=== PATIENT | female | born 1965 | race Caucasian/White ===

== ENCOUNTER 2017-03-05 04:04 | Emergency (ER) | payer OTHER ==
--- NOTE | 2017-03-05 04:10 | PDOC ---
History of Present Illness - General History Source: Patient Exam Limitations: No Limitations - History of Present Illness Initial Comments: 03/05/17 04:38 The patient is a 51-year-old female, with a significant past medical history of asthma, HTN, h pylori, diabetes, who presents to the ED with chest pain. Pt states that she experienced chest pain lasting an hour that radiates up to her ears. She states that she was not sure if she took her levemir today so she thinks she took two doses of the medication. The patient denies any fever, chills, nausea, vomiting, diarrhea, or abdominal pain. The patient denies any shortness of breath. Family Hx: coronary artery disease (mother), diabetes, and asthma. <Mayra Simeon - Last Filed: 03/05/17 04:38> <Arelis Paulino - Last Filed: 03/05/17 06:17> - General Stated Complaint: CHEST PAIN Time Seen by Provider: 03/05/17 04:10 Past History <Mayra Simeon - Last Filed: 03/05/17 04:38> - Past Medical History Asthma: Yes Diabetes: Yes GI Disorders: Yes (H PYLORI) HTN: Yes - Surgical History Appendectomy: Yes - Psycho/Social/Smoking Cessation Hx Anxiety: No Suicidal Ideation: No Smoking History: Never smoked Hx Alcohol Use: Yes (SOCIAL) Substance Use Type: None <Arelis Paulino - Last Filed: 03/05/17 06:17> - Past Medical History Allergies/Adverse Reactions: Allergies Allergy/AdvReac Type Severity Reaction Status Date / Time iodine Allergy Hives Verified 03/05/17 04:31 povidone-iodine Allergy Hives Verified 03/05/17 04:31 [From Betadine] shellfish derived Allergy Hives Verified 03/05/17 04:31 soap [From Betadine] Allergy Hives Verified 03/05/17 04:31 Home Medications: Ambulatory Orders Albuterol Sulfate Inhaler - [Ventolin HFA Inhaler -] 1 - 2 inh PO QID PRN Losartan Potassium 0 mg PO HS 12/01/14 Metformin HCl [Metformin HCl ER] 1,000 mg PO BID 12/01/14 Salmeterol/Fluticasone [Advair 100Mcg/50Mcg -] 1 inh IH BID 12/01/14 Review of Systems - Review of Systems Able to Perform ROS?: Yes Comments:: 03/05/17 04:38 GENERAL/CONSTITUTIONAL: No fever or chills. No weakness. HEAD, EYES, EARS, NOSE AND THROAT: No change in vision. No ear discharge. No sore throat. +ear pain CARDIOVASCULAR: No shortness of breath. +chest pain RESPIRATORY: No cough, wheezing, or hemoptysis. SKIN: No rash GASTROINTESTINAL: No nausea, vomiting, diarrhea or constipation. GENITOURINARY: No dysuria, frequency, or change in urination. MUSCULOSKELETAL: No joint or muscle swelling or pain. No neck or back pain. NEUROLOGIC: No headache, vertigo, loss of consciousness, or change in strength/ sensation. ENDOCRINE: No increased thirst. No abnormal weight change. HEMATOLOGIC/LYMPHATIC: No anemia, easy bleeding, or history of blood clots. ALLERGIC/IMMUNOLOGIC: No hives or skin allergy. <Mayra Simeon - Last Filed: 03/05/17 04:38> *Physical Exam - Vital Signs Last Vital Signs Temp Pulse Resp BP Pulse Ox 98.6 F 89 20 125/79 98 03/05/17 04:31 03/05/17 04:31 03/05/17 04:31 03/05/17 04:31 03/05/17 04:31 - Physical Exam Comments: 03/05/17 04:39 GENERAL: Awake, alert, and fully oriented, in no acute distress. Obese. +pt appears to be anxious HEAD: No signs of trauma ENT: Auricles normal inspection, hearing grossly normal, nares patent, oropharynx clear EYES: PERRLA, EOMI, sclera anicteric, conjunctiva clear without exudates. Moist mucosa. NECK: Normal ROM, supple, no lymphadenopathy, JVD, or masses LUNGS: Breath sounds equal, clear to auscultation bilaterally. No wheezes, and no crackles HEART: Regular rate and rhythm, normal S1 and S2, no murmurs, rubs or gallops ABDOMEN: Soft, nontender, normoactive bowel sounds. No guarding, no rebound. No masses EXTREMITIES: Normal range of motion, no pitting edema. No clubbing or cyanosis. No cords, erythema, or tenderness NEUROLOGICAL: Cranial nerves II through XII grossly intact. Normal speech, normal gait SKIN: Warm, Dry, normal turgor, no rashes or lesions noted <Mayra Simeon - Last Filed: 03/05/17 04:38> ED Treatment Course - LABORATORY CBC & Chemistry Diagram: 03/05/17 04:45 03/05/17 04:45 <Arelis Paulino - Last Filed: 03/05/17 06:17> Medical Decision Making - Medical Decision Making 03/05/17 06:13 Pt comes with chest pain x 1 hour that woke her from sleep. She has a burning sensation mid chest to throat. Pt had bariatric surg. Since that time, she gained weight and this is the first time she is having GERD. Pt's BP is 120s systolic; her blood sugar is 200s. She has no SOB, chest clear on exam. EKG NSRl cxr normal. Labs normal. Pt will be discharged home. She admits that she has anxiety and that this is likely atypical CP. <Arelis Paulino - Last Filed: 03/05/17 06:17> *DC/Admit/Observation/Transfer - Attestations Scribe Attestion: 03/05/17 04:40 Documentation prepared by Mayra Simeon, acting as medical lab tech instructor for Arelis Paulino MD. <Mayra Simeon - Last Filed: 03/05/17 04:38> - Discharge Dispostion Admit: No <Arelis Paulino - Last Filed: 03/05/17 06:17> Diagnosis at time of Disposition: History of gastroesophageal reflux (GERD), Atypical chest pain, Anxiety - Discharge Dispostion Disposition: HOME Condition at time of disposition: Stable - Referrals Referrals: Jamaal Penny MD [Primary Care Provider] - - Patient Instructions Printed Discharge Instructions: DI for Atypical Chest Pain, GERD Diet, DI for Gastroesophageal Reflux Disease (GERD)
[2017-03-05 04:36] VITALS: BMI 40.4
[2017-03-05] MEDS ORDERED: MAG HYDROX/AL HYDROX/SIMETH 30 ML UNIT-DOSE CUP PO ONE (04:36)
[2017-03-05] MEDS ORDERED: MAG HYDROX/AL HYDROX/SIMETH 30 ML UNIT-DOSE CUP ONE (04:39)
[2017-03-05 04:54] LABS: BASOPHIL 0.7 % (0-2.0); EOSINOPHIL 3.2 % (0-4.5); MCH 27.4 pg (25.7-33.7); MCHC 32.3 g/dl (32.0-36.0); MEAN PLT VOLUME 7.5 fl (7.5-11.1); NEUTROPHILS 58.7 % (42.8-82.8); PLATELET COUNT 322 K/MM3 (134-434); RDW 13.6 % (11.6-15.6); WHITE BLOOD COUNT 11.8 K/mm3 (4.0-10.0)
[2017-03-05 05:25] LABS: ALBUMIN 3.6 g/dl (3.4-5.0); ANION GAP 10 (8-16); BILIRUBIN,TOTAL 0.4 mg/dL (0.2-1.0); CALCIUM 9.2 mg/dL (8.5-10.1); CO2 31 mmol/L (21-32); CREATININE 0.9 mg/dL (0.55-1.02); GLUCOSE,RANDOM 204 mg/dL (74-106); SGOT/AST 14 U/L (15-37); SGPT/ALT 50 U/L (12-78); TOT PROT 6.7 g/dl (6.4-8.2)
[2017-03-05 05:27] LABS: ALK PHOS 88 U/L (45-117); TROPONIN I < 0.02 ng/ml (0.00-0.05)
[2017-03-05 06:05] VITALS: BP 130/88; PULSE 83; TEMP 97.9
--- NOTE | 2017-03-05 19:17 | EKG ---
Test Reason : Blood Pressure : / mmHG Vent. Rate : 077 BPM Atrial Rate : 077 BPM P-R Int : 152 ms QRS Dur : 090 ms QT Int : 382 ms P-R-T Axes : 047 044 019 degrees QTc Int : 432 ms NORMAL SINUS RHYTHM NORMAL ECG NO PREVIOUS ECGS AVAILABLE Confirmed by KALEB PERRY MD ([id number]) on 03/05/2017 7:16:41 PM Referred By: Confirmed By:KALEB PERYR MD
== END 2017-03-05 06:06 | disposition home or self-care (01) ==
LOC: JER 04:04
DX: R07.89 Other chest pain (principal); F41.9 Anxiety disorder, unspecified; K21.9 Gastro-esophageal reflux disease without esophagitis; I10 Essential (primary) hypertension; E11.9 Type 2 diabetes mellitus without complications; J45.909 Unspecified asthma, uncomplicated
CPT/HCPCS: 36415; 71020-TC; 80053; 82550; 84484; 85025; 93005; 93010; 99281-25

== ENCOUNTER 2018-10-09 17:03 | Observation (INO) | payer OTHER ==
--- NOTE | 2018-10-09 19:28 | PDOC ---
History of Present Illness <Zeferino Shannon - Last Filed: 10/09/18 22:06> - General History Source: Patient - History of Present Illness Initial Comments: 10/09/18 19:34 52 year with history of meningioma s/p radiation on 03/2018by Dr. Sosa. c/o right eye blurriness, " quadruple vision" and dizziness x 2 weeks. denies headache, vision loss, fever/ chills, neck pain. patient reports that symptoms are intermittent in nature. denies NVD, headache, abdominal pain, chest pain. PCP: Dr. mondragon. <Nathalie Fisher - Last Filed: 10/09/18 23:09> - General Chief Complaint: Difficulty seeing Stated Complaint: DIFFICULTY SEEING Time Seen by Provider: 10/09/18 19:24 Past History <Zeferino Shannon - Last Filed: 10/09/18 22:06> - Past Medical History Asthma: Yes COPD: No Diabetes: Yes GI Disorders: Yes (H PYLORI) HTN: Yes Hypercholesterolemia: Yes - Surgical History Appendectomy: Yes GI Surgery: No - Immunization History Immunization Up to Date: Yes - Suicide/Smoking/Psychosocial Hx Smoking History: Never smoked Have you smoked in the past 12 months: No Information on smoking cessation initiated: No Hx Alcohol Use: No Drug/Substance Use Hx: No Substance Use Type: None <Nathalie Fisher - Last Filed: 10/09/18 23:09> - Past Medical History Allergies/Adverse Reactions: Allergies Allergy/AdvReac Type Severity Reaction Status Date / Time iodine Allergy Hives Verified 01/08/18 14:46 povidone-iodine Allergy Hives Verified 01/08/18 14:46 [From Betadine] shellfish derived Allergy Hives Verified 01/08/18 14:46 soap [From Betadine] Allergy Hives Verified 01/08/18 14:46 Home Medications: Ambulatory Orders Losartan Potassium 50 mg PO HS 12/01/14 Amlodipine Besylate 10 mg PO HS 01/08/18 Albuterol Sulfate Inhaler - [Ventolin Hfa Inhaler -] 1 - 2 inh PO Q4H PRN Farxiga 10 mg PO DAILY 01/09/18 Hctz - 25 mg PO HS 01/09/18 Lasix 20 mg PO Q2D 01/09/18 Levemir Vial 52 unit SQ HS 01/09/18 metFORMIN HCL [Glucophage -] 1,000 mg PO BIDAC 01/09/18 Acetaminophen [Tylenol .Regular Strength -] 650 mg PO Q6H PRN tablet 01/12/18 Albuterol 0.083% Nebulizer Lora [Ventolin 0.083% Nebulizer Soln -] 1 amp NEB Q6H PRN amp 01/12/18 Furosemide [Lasix -] 20 mg PO Q2D@1000 tablet 01/12/18 Hydrochlorothiazide [Hctz -] 25 mg PO HS tablet 01/12/18 Insulin (Levemir) [Levemir Vial] 52 units SQ HS ml 01/12/18 Losartan Potassium [Cozaar -] 50 mg PO HS tablet 01/12/18 Review of Systems - Review of Systems Able to Perform ROS?: Yes Is the patient limited Irish proficient: No Constitutional: No: Symptoms Reported, See HPI, Chills, Diaphoresis, Fever, Loss of Appetite, Malaise, Night Sweats, Weakness, Weight Stable, Unintentional Wgt. Loss, Unexplained wgt Loss, Other HEENTM: Yes: Blurred Vision (right eye) Neurological: Yes: Dizziness, Other (right side facial numbness). No: Symptoms reported, See HPI, Headache, Numbness, Paresthesia, Pre-Existing Deficit, Seizure, Tingling, Tremors, Weakness, Unsteady Gait, Ataxia <Nathalie Fisher S. - Last Filed: 10/09/18 23:09> *Physical Exam - Vital Signs Last Vital Signs Temp Pulse Resp BP Pulse Ox 97.9 F 84 16 168/89 97 10/09/18 17:20 10/09/18 17:20 10/09/18 17:20 10/09/18 17:20 10/09/18 17:20 <Zeferino Shannon - Last Filed: 10/09/18 22:06> - Vital Signs Last Vital Signs Temp Pulse Resp BP Pulse Ox 97.9 F 84 16 168/89 97 10/09/18 17:20 10/09/18 17:20 10/09/18 17:20 10/09/18 17:20 10/09/18 17:20 - Physical Exam General Appearance: Yes: Appropriately Dressed HEENT: positive: Other (PERRLA, no nystagmus, EOM intact. patient reports dizziness with EOM) Respiratory/Chest: positive: Lungs Clear, Normal Breath Sounds Cardiovascular: positive: Regular Rhythm, Regular Rate Gastrointestinal/Abdominal: positive: Normal Bowel Sounds, Soft. negative: Tender Integumentary: positive: Normal Color, Dry, Warm Neurologic: positive: Fully Oriented, Alert, Normal Mood/Affect <Nathalie Fisher - Last Filed: 10/09/18 23:09> Moderate Sedation - Procedure Monitoring Vital Signs: Procedure Monitoring Vital Signs Temperature 97.9 F 10/09/18 17:20 Pulse Rate 84 10/09/18 17:20 Respiratory Rate 16 10/09/18 17:20 Blood Pressure 168/89 10/09/18 17:20 O2 Sat by Pulse Oximetry (%) 97 10/09/18 17:20 <Zeferino Shannon - Last Filed: 10/09/18 22:06> - Procedure Monitoring Vital Signs: Procedure Monitoring Vital Signs Temperature 97.9 F 10/09/18 17:20 Pulse Rate 84 10/09/18 17:20 Respiratory Rate 16 10/09/18 17:20 Blood Pressure 168/89 10/09/18 17:20 O2 Sat by Pulse Oximetry (%) 97 10/09/18 17:20 <Nathalie Fisher - Last Filed: 10/09/18 23:09> ED Treatment Course - LABORATORY CBC & Chemistry Diagram: 10/09/18 20:31 10/09/18 20:31 - ADDITIONAL ORDERS Additional order review: Laboratory Results 10/09/18 10/09/18 20:31 20:31 PT with INR 10.30 INR 0.87 Urine Color Straw Urine Appearance Clear Urine pH 6.0 Ur Specific [place] 1.035 Urine Protein Negative Urine Glucose (UA) 3+ H Urine Ketones Negative Urine Blood Negative Urine Nitrite Negative Urine Bilirubin Negative Urine Urobilinogen Negative Ur Leukocyte Esterase Negative 10/09/18 20:31 RBC 4.70 MCV 84.6 MCHC 34.4 RDW 14.0 MPV 7.9 Neutrophils % 55.7 Lymphocytes % 32.8 D Monocytes % 5.5 Eosinophils % 5.4 H Basophils % 0.6 <Zeferino Shannon - Last Filed: 10/09/18 22:06> - LABORATORY CBC & Chemistry Diagram: 10/09/18 20:31 10/09/18 20:31 <Nathalie Fisher - Last Filed: 10/09/18 23:09> Medical Decision Making - Medical Decision Making 10/09/18 8:30pm Call placed to Dr. Phillip Sosa, patient's neurosurgeon, awaiting call back. 9:30pm Second call placed to Dr. Sosa, awaiting call back. 10pm Call returned from Dr. Sosa, case was discussed. Call placed to Dr. Jamaal Mondragon's answering service, case discussed with covering physician Dr. Tabares. <Zeferino Shannon - Last Filed: 10/09/18 22:06> - Medical Decision Making 10/09/18 22:[address] sosa. recommends obs stay for MRI. patient signed out to Dr. Humphries covering for Dr. Mondragon, 10/09/18 23:04 Blood glucose 301. patient reports that she missed her evening dose of levemir 52 units, losartan and metformin. denies NVD. will evening scheduled dose. <Nathalie Fisher - Last Filed: 10/09/18 23:09> *DC/Admit/Observation/Transfer - Attestations Scribe Attestion: 10/09/18 22:09 Documentation prepared by Zeferino Shannon, acting as medical interpreter for Carl Loving MD. <Zeferino Shannon - Last Filed: 10/09/18 22:06> - Discharge Dispostion Decision to Admit order: Yes <Nathalie Fisher - Last Filed: 10/09/18 23:09> Diagnosis at time of Disposition: Changes in vision, Dizziness, Meningioma - Discharge Dispostion Condition at time of disposition: Stable - Referrals Referrals: Jamaal Mondragon MD [Primary Care Provider] - - Patient Instructions - Post Discharge Activity
[2018-10-09 20:46] LABS: BASO % 0.6 % (0-2.0); EOS % 5.4 % (0-4.5); HEMATOCRIT 39.7 % (32.4-45.2); HEMOGLOBIN 13.7 GM/dL (10.7-15.3); LYMPH % 32.8 % (8-40); MCH 29.1 pg (25.7-33.7); MCHC 34.4 g/dl (32.0-36.0); MEAN CELL VOLUME 84.6 fl (80-96); MEAN PLT VOLUME 7.9 fl (7.5-11.1); MONO % 5.5 % (3.8-10.2); NEUT % 55.7 % (42.8-82.8); PLATELET COUNT 328 K/MM3 (134-434)
[2018-10-09 20:47] LABS: URINE APPEARANCE CLEAR; URINE BILIRUBIN NEGATIVE (<2.0 mg/dL); URINE COLOR STRAW; URINE GLUCOSE (UA) 3+ (NEGATIVE); URINE KETONE NEGATIVE (NEGATIVE); URINE LEUK ESTERASE NEGATIVE (NEGATIVE); URINE NITRITE NEGATIVE (NEGATIVE); URINE PROTEIN NEGATIVE (NEGATIVE); URINE UROBILINOGEN NEGATIVE mg/dL (0.2-1.0)
[2018-10-09 21:14] LABS: INR 0.87 (0.83-1.09); PROTHROMBIN TIME (PATIENT) 10.3 SEC (9.7-13.0)
[2018-10-09] MEDS ORDERED: DEXAMETHASONE SOD PHOSPHATE 20 MG/5 ML VIAL IVPB ONE (22:22)
[2018-10-09 22:46] LABS: ALBUMIN 3.7 g/dl (3.4-5.0); ALK PHOS 100 U/L (45-117); ANION GAP 7 MMOL/L (8-16); BILIRUBIN,TOTAL 0.3 mg/dL (0.2-1); BLOOD UREA NITROGEN 14 mg/dL (7-18); CALCIUM 8.7 mg/dL (8.5-10.1); CHLORIDE 104 mmol/L (98-107); CO2 30 mmol/L (21-32); CREATININE 0.8 mg/dL (0.55-1.3); SGOT/AST 42 U/L (15-37); SGPT/ALT 71 U/L (13-61); SODIUM 141 mmol/L (136-145); TOT PROT 7.2 g/dl (6.4-8.2)
[2018-10-09 22:49] LABS: GLUCOSE,RANDOM 307 mg/dL (74-106)
[2018-10-09] MEDS ORDERED: metFORMIN HCL 500 MG TABLET (FP) PO ONE (23:02)
[2018-10-09] MEDS ORDERED: LOSARTAN 50MG/HCTZ 12.5MG 1 TAB (FP) PO ONE (23:03)
[2018-10-10] MEDS ORDERED: DEXAMETHASONE SOD PHOSPHATE 10 MG/1 ML VIAL ONE (00:05)
[2018-10-10] MEDS ORDERED: metFORMIN HCL 500 MG TABLET (FP) ONE (00:05)
[2018-10-10] MEDS ORDERED: INSULIN (LEVEMIR) 100 UNITS/ML UNITS SQ ONE (00:06)
[2018-10-10 00:51] LABS: VENOUS PC02 35.7 mmHg (38-52); VENOUS PH 7.47 (7.32-7.42); VENOUS PO2 54.1 mmHg (28-48)
[2018-10-10 03:30] VITALS: BMI 44.2
[2018-10-10] MEDS: metFORMIN HCL 500 MG TABLET (FP) PO SCH ×2 (06:50→17:05)
--- NOTE | 2018-10-10 08:40 | PN ---
Progress Note (short form) - Note Progress Note: NEUROSURGERY H/o R cavernous sinus meningioma s/p GSR 6 months ago c/o right eye blurriness and dizziness x 2 weeks. States she sees quadruple vertical lines transiently. Difficulty opening eyes in morning. Some R cheek area numbness. Pt did have prior R facial paresthesia, pain, and OD diplopia which improved after initial GSR treatment. No recent headache, vision loss, fever/ chills, neck pain. Symptoms are intermittent in nature. denies N/V, weakness, numbness of extremity. Overall sensation slightly better this AM. PMH- DM, obesity, Htn Meds- insulin, losartan, glucophage, norvasc All- iodine/betadine So Hx: non-smoker, social Etoh, outreach and education social worker, lives at home ROS- negative for constitutional, head and neck, CV, pulm, GI, , Stylist Assistant, derm, psych, neuro, onc problems otherwise PE: AF, VSS HEENT- NC/AT; Neck- supple; Cor- RR; Lungs- CTA B; Abd- obese, benign; Ext- no sign of DVT CN- II-X intact (? minimal R lid lag if any); Motor- 5/5 without drift; Sensation- intact LT; DTR- 1+; Gait- stable Labs reviewed; WBC 11, Hgb 13.7; glucose [address]- Negative for acute stroke, bleed, fx; mild R cav sinus fullness R cavernous menigioma without obvious sign of growth on CT Repeat brain MRI without/with abdirahman Start trileptal for R eye and face paresthesia Hold further steroid given hyperglycemia DM control per medical team Plan d/w pt Care d/w ED team yesterday evening Further recommendations after MRI
[2018-10-10] MEDS: LOSARTAN POTASSIUM 50 MG TABLET (FP) PO SCH (09:51)
[2018-10-10] MEDS: amLODIPine BESYLATE 10 MG TABLET (FP) PO SCH (09:51)
[2018-10-10] MEDS ORDERED: OXcarbazepine 300 MG/5 ML 250 ML BULK BOTTLE PO SCH (10:00)
--- NOTE | 2018-10-10 10:00 | EKG ---
Test Reason : Blood Pressure : / mmHG Vent. Rate : 072 BPM Atrial Rate : 072 BPM P-R Int : 150 ms QRS Dur : 078 ms QT Int : 388 ms P-R-T Axes : 067 062 053 degrees QTc Int : 424 ms NORMAL SINUS RHYTHM NORMAL ECG WHEN COMPARED WITH ECG OF 08-JAN-2018 14:52, NO SIGNIFICANT CHANGE WAS FOUND Confirmed by Sin Zarate MD ([id number]) on 10/10/2018 10:00:42 AM Referred By: Confirmed By:Sin Zarate MD
[2018-10-10] MEDS ORDERED: ALBUTEROL SO4 8 GM HFA INHALER IH PRN (10:01)
--- NOTE | 2018-10-10 10:08 | PN ---
Progress Note, Physician Chief Complaint: pt sitting in the chair no new neurological symptoms Blurry vision on And OFF neurology note appreciated - Current Medication List Current Medications: Active Medications Albuterol Sulfate (Ventolin Hfa Inhaler -) 2 puff IH Q4H PRN PRN Reason: SHORT OF BREATH/WHEEZING Amlodipine Besylate (Norvasc -) 10 mg PO DAILY [facility] Last Admin: 10/10/18 09:51 Dose: 10 mg Insulin Detemir (Levemir Vial) 52 units SQ HS [facility] Losartan Potassium (Cozaar -) 50 mg PO DAILY [facility] Last Admin: 10/10/18 09:51 Dose: 50 mg Metformin HCl (Glucophage -) 1,000 mg PO BID@0700,1630 [facility] Last Admin: 10/10/18 06:50 Dose: 1,000 mg Oxcarbazepine (Trileptal) 150 mg PO BID [facility] - Objective Vital Signs: Vital Signs Temperature 98.2 F 10/10/18 06:00 Pulse Rate 88 10/10/18 06:00 Respiratory Rate 20 10/10/18 06:00 Blood Pressure 146/90 10/10/18 06:00 O2 Sat by Pulse Oximetry (%) 97 10/10/18 01:36 Constitutional: Yes: No Distress Eyes: Yes: Conjunctiva Clear, PERRL HENT: Yes: Atraumatic, Normocephalic Neck: Yes: Supple, Trachea Midline Cardiovascular: Yes: Regular Rate and Rhythm Respiratory: Yes: Regular, CTA Bilaterally Gastrointestinal: Yes: Normal Bowel Sounds, Soft Musculoskeletal: Yes: WNL Extremities: Yes: WNL Edema: No Peripheral Pulses WNL: Yes Neurological: Yes: WNL, Alert, Oriented, Cran Nerves II-XII Intact, Numbness ( rt side of face stable) ...Motor Strength: WNL Psychiatric: Yes: Alert Labs: CBC, BMP 10/09/18 20:31 10/09/18 20:31 INR, PTT INR 0.87 (0.83-1.09) 10/09/18 20:31 - ....Imaging Cat Scan: Report Reviewed MRI: Pending Assessment/Plan Blurred vision rt eye Numbness rt d side of face,stable S/p treatment for benign brain Tumor DM HTN plan MRI of brain Continue home meds monitor Blood sugar F/u neurosurgery rec Neurology consult
[2018-10-10] MEDS: OXcarbazepine 150 MG TABLET (UD) PO SCH ×2 (10:31→23:14)
--- NOTE | 2018-10-10 10:32 | HP ---
DATE OF ADMISSION: 10/09/2018 HISTORY: The patient is a 52-year-old female with a history of right cavernous sinus meningioma status post gamma radiation 6 months ago who came to the emergency room with the complaints of right eye blurriness and dizziness since 2 weeks. The patient states she sees quadruple vertical lines transient, difficulty in opening the eyes in the morning, and complains of some right cheek area numbness. The patient did have a prior right facial paresthesia pain and diplopia, which improved after initial gamma treatment. No recent headache. Patient ____denies_ fever, chills, neck pain, and all current symptoms are intermittent. No weakness, no numbness in the extremities , no swallowing problem, no speech problem, no history of any choking. Today morning the patient feels slightly better. PAST MEDICAL HISTORY: History of diabetes, hypertension, Helicobacter pylori, hypercholesterolemia. PERSONAL HISTORY: Nonsmoker. Social alcohol use. SOCIAL HISTORY: gas plant worker. Lives with the family. ALLERGIES: Allergy to POVIDONE-IODINE, SHELLFISH, STEROIDS, and SOAP. MEDICATIONS: Reviewed. The patient is on losartan 50 mg daily, amlodipine 10 mg daily, Ventolin HFA, Farxiga, hydrochlorothiazide, Levemir 52 units subcutaneous daily, metformin 1000 mg p.o. b.i.d., Tylenol 650 mg q.6 hourly. PHYSICAL EXAMINATION: Vital Signs: Temperature 97.9, pulse rate 84, respirations 16, blood pressure 168/89, temperature 97.1. Neck: Neck supple. No JVD. Lungs: Clear. Equally bilateral air entry. Cardiovascular: First and second sound normal. Abdomen: Soft and no tenderness. No distention. Bowel sounds present. Extremities: No pedal edema. Neurologic: Cranial nerves 2-12 intact. No impaired motor or sensory deficit. Reflexes normal. Gait normal. LABORATORIES: CBC normal. CMP: Sugar 307, sodium 141, potassium 5, chloride 104, bicarbonate 30, BUN 14, creatinine 0.8. ABG: PH 7.47, PCO2 of 35.7, PO2 of 54.1, bicarbonate 25.4. Troponin negative. CK 89, AST 43, ALT 71, alkaline phosphatase 100, calcium 8.1. Acetone urine negative. PT 10.3, INR 0.87, urine glucose 3+ . CT head without contrast and CT orbits done in the emergency room: No evidence of acute intracranial pathology. The patient was given 10-mg IV Decadron in the emergency room. The case was discussed with the neurosurgeon. Recommended to keep the patient for observation and recommend MRI. Patient kept for observation on the floor. ADMITTING DIAGNOSIS: 1. Blurriness of the right eye. 2. Mild numbness on the right side of the face. 3. Diabetes. 4. Hypertension. 5 s/p treatment for meningioma of brain PLAN: Neurosurgery follow up. MRI of the brain. Continue the home medication. Monitor the neurological signs. Patient is stable on the floor. BARAK ALFREDO M.D. [id number] MTDIrina
[2018-10-10] MEDS ORDERED: DEXAMETHASONE SOD PHOSPHATE 4 MG/1 ML VIAL IVPUSH ONE (12:00)
[2018-10-10] MEDS ORDERED: INSULIN (LEVEMIR) 100 UNITS/ML UNITS SQ SCH (22:00)
[2018-10-10] MEDS ORDERED: PT OWN MED DRAWER 7, Y5N ONE (22:17)
[2018-10-11] MEDS: metFORMIN HCL 500 MG TABLET (FP) PO SCH (06:09)
--- NOTE | 2018-10-11 09:26 | PN ---
Progress Note, Physician Chief Complaint: pt sitting in the chair no new neurological symptoms Blurry vision on And OFF neurology note appreciated MRI report pending Neurology consult appreciated - Current Medication List Current Medications: Active Medications Albuterol Sulfate (Ventolin Hfa Inhaler -) 2 puff IH Q4H PRN PRN Reason: SHORT OF BREATH/WHEEZING Last Admin: 10/11/18 00:17 Dose: 2 puff Amlodipine Besylate (Norvasc -) 10 mg PO DAILY [facility] Last Admin: 10/10/18 09:51 Dose: 10 mg Insulin Detemir (Levemir Vial) 52 units SQ HS [facility] Last Admin: 10/10/18 23:14 Dose: 52 units Losartan Potassium (Cozaar -) 50 mg PO DAILY [facility] Last Admin: 10/10/18 09:51 Dose: 50 mg Metformin HCl (Glucophage -) 1,000 mg PO BID@0700,1630 [facility] Last Admin: 10/11/18 06:09 Dose: 1,000 mg Oxcarbazepine (Trileptal -) 150 mg PO BID [facility] Last Admin: 10/10/18 23:14 Dose: 150 mg - Objective Vital Signs: Vital Signs Temperature 97.7 F 10/11/18 05:48 Pulse Rate 65 10/11/18 05:48 Respiratory Rate 18 10/11/18 05:48 Blood Pressure 117/68 10/11/18 05:48 O2 Sat by Pulse Oximetry (%) 96 10/11/18 06:00 Constitutional: Yes: No Distress Eyes: Yes: Conjunctiva Clear HENT: Yes: Atraumatic Neck: Yes: Supple, Trachea Midline Cardiovascular: Yes: Regular Rate and Rhythm Respiratory: Yes: Regular, CTA Bilaterally Gastrointestinal: Yes: Normal Bowel Sounds Breast(s): Yes: WNL Musculoskeletal: Yes: WNL Extremities: Yes: WNL Edema: No Peripheral Pulses WNL: Yes Neurological: Yes: WNL, Alert ...Motor Strength: WNL Psychiatric: Yes: WNL, Alert Labs: CBC, BMP 10/09/18 20:31 10/09/18 20:31 INR, PTT INR 0.87 (0.83-1.09) 10/09/18 20:31 Assessment/Plan Blurred vision rt eye Numbness rt d side of face,stable S/p treatment for meningioma DM HTN plan Will f/u MRI of brain report Continue home meds monitor Blood sugar F/u neurosurgery rec regarding d/c after reviewing MRI report
[2018-10-11] MEDS ORDERED: PT OWN MED DRAWER 7, Y5N ONE (09:31)
[2018-10-11] MEDS: amLODIPine BESYLATE 10 MG TABLET (FP) PO SCH (09:33)
[2018-10-11] MEDS: LOSARTAN POTASSIUM 50 MG TABLET (FP) PO SCH (09:33)
[2018-10-11] MEDS: OXcarbazepine 150 MG TABLET (UD) PO SCH (09:33)
--- NOTE | 2018-10-11 09:41 | CONSULT ---
Consult - text type - Consultation Consultation Note: Neurology History of Present Illness 52 year with history of meningioma s/p radiation on 03/[address] Mccarthy. c/o right eye blurriness, " quadruple vision" and dizziness x 2 weeks. denies headache, vision loss, fever/ chills, neck pain. patient reports that symptoms are intermittent in nature. denies NVD, headache, abdominal pain, chest pain. MRI brain repeated and stable compared to prior, reviewed and discussed with patient in detail. Discussed case with primary in detail yesterday. Aside from vision, no significant symptoms. Past History - Past Medical History Asthma: Yes COPD: No Diabetes: Yes GI Disorders: Yes (H PYLORI) HTN: Yes Hypercholesterolemia: Yes - Surgical History Appendectomy: Yes GI Surgery: No - Immunization History Immunization Up to Date: Yes - Suicide/Smoking/Psychosocial Hx Smoking History: Never smoked Have you smoked in the past 12 months: No Information on smoking cessation initiated: No Hx Alcohol Use: No Drug/Substance Use Hx: No Substance Use Type: None - Past Medical History Allergies/Adverse Reactions: Allergies Allergy/AdvReac Type Severity Reaction Status Date / Time iodine Allergy Hives Verified 01/08/18 14:46 povidone-iodine Allergy Hives Verified 01/08/18 14:46 [From Betadine] shellfish derived Allergy Hives Verified 01/08/18 14:46 soap [From Betadine] Allergy Hives Verified 01/08/18 14:46 Home Medications: Ambulatory Orders Losartan Potassium 50 mg PO HS 12/01/14 Amlodipine Besylate 10 mg PO HS 01/08/18 Albuterol Sulfate Inhaler - [Ventolin Hfa Inhaler -] 1 - 2 inh PO Q4H PRN Farxiga 10 mg PO DAILY 01/09/18 Hctz - 25 mg PO HS 01/09/18 Lasix 20 mg PO Q2D 01/09/18 Levemir Vial 52 unit SQ HS 01/09/18 metFORMIN HCL [Glucophage -] 1,000 mg PO BIDAC 01/09/18 Acetaminophen [Tylenol .Regular Strength -] 650 mg PO Q6H PRN tablet 01/12/18 Albuterol 0.083% Nebulizer Lora [Ventolin 0.083% Nebulizer Soln -] 1 amp NEB Q6H PRN amp 01/12/18 Furosemide [Lasix -] 20 mg PO Q2D@1000 tablet 01/12/18 Hydrochlorothiazide [Hctz -] 25 mg PO HS tablet 01/12/18 Insulin (Levemir) [Levemir Vial] 52 units SQ HS ml 01/12/18 Losartan Potassium [Cozaar -] 50 mg PO HS tablet 01/12/18 Review of Systems - Review of Systems Able to Perform ROS?: Yes Is the patient limited Czech proficient: No Constitutional: No: Symptoms Reported, See HPI, Chills, Diaphoresis, Fever, Loss of Appetite, Malaise, Night Sweats, Weakness, Weight Stable, Unintentional Wgt. Loss, Unexplained wgt Loss, Other HEENTM: Yes: Blurred Vision (right eye) Neurological: Yes: Dizziness, Other (right side facial numbness). No: Symptoms reported, See HPI, Headache, Numbness, Paresthesia, Pre-Existing Deficit, Seizure, Tingling, Tremors, Weakness, Unsteady Gait, Ataxia *Physical Exam Vital Signs Period Temp Pulse Resp BP Sys/Hernandez Pulse Ox Last 24 Hr 97.7 F-98.7 F 65-109 17-20 117-144/68-88 96-96 - Physical Exam General Appearance: Yes: Appropriately Dressed HEENT: positive: Other (PERRLA, no nystagmus, EOM intact. patient reports dizziness with EOM) Respiratory/Chest: positive: Lungs Clear, Normal Breath Sounds Cardiovascular: positive: Regular Rhythm, Regular Rate Gastrointestinal/Abdominal: positive: Normal Bowel Sounds, Soft. negative: Tender Integumentary: positive: Normal Color, Dry, Warm Neurologic: positive: Fully Oriented, Alert, Normal Mood/Affect, EOMI, ABDULKADIR, no facial droop, no slurred speech, sensory intact Laboratory Results 10/09/18 10/09/18 20:31 20:31 PT with INR 10.30 INR 0.87 Urine Color Straw Urine Appearance Clear Urine pH 6.0 Ur Specific [place] 1.035 Urine Protein Negative Urine Glucose (UA) 3+ H Urine Ketones Negative Urine Blood Negative Urine Nitrite Negative Urine Bilirubin Negative Urine Urobilinogen Negative Ur Leukocyte Esterase Negative 10/09/18 20:31 RBC 4.70 MCV 84.6 MCHC 34.4 RDW 14.0 MPV 7.9 Neutrophils % 55.7 Lymphocytes % 32.8 D Monocytes % 5.5 Eosinophils % 5.4 H Basophils % 0.6 MRI brain reviewed Medical Decision Making 52 year with history of meningioma s/p radiation on 03/[address] Mccarthy. c/o right eye blurriness, " quadruple vision" and dizziness x 2 weeks. denies headache, vision loss, fever/ chills, neck pain. patient reports that symptoms are intermittent in nature. denies NVD, headache, abdominal pain, chest pain. MRI brain repeated and stable compared to prior, reviewed and discussed with patient in detail. Discussed case with primary in detail yesterday. Aside from vision, no significant symptoms. Would defer to Dr. Mccarthy regarding further intervention. Do not see role for steroids. May require repeat procedure, refer to Dr. Mccarthy.
[2018-10-11 11:11] VITALS: BP 130/70; PULSE 94; TEMP 98
--- NOTE | 2018-10-11 11:11 | PN ---
Progress Note (short form) - Note Progress Note: NEUROSURGERY Overall vision and sensation about the same PE: AF, VSS, FS down to 170's HEENT- NC/AT; Neck- supple; Cor- RR; Lungs- CTA B; Abd- obese, benign; Ext- no sign of DVT CN- II-X intact (minimal R lid lag if any); Motor- 5/5 without drift; Sensation - intact LT; DTR- 1+; Gait- stable Head CT- Negative for acute stroke, bleed, fx; mild R cav sinus fullness Brain MRI- R cavernous sinus meningioma with extension to R anterior clinoid and R medial tentorium; no brain edema Repeat brain MRI without/with abdirahman- Started trileptal for R eye and face paresthesia It takes gamma knife radiosurgery 6 to 18 months to reach maximum effect and would hold off further intervention given stable MRI tumor appearance Hold further steroid DM control per medical team Stable neurologically jeanne discharge home Outpatient f/u discussed w pt
[2018-10-11] MEDS ORDERED: ATORVASTATIN CA 20 MG TABLET (FP) PO SCH (22:00)
--- NOTE | 2018-10-12 13:46 | DS ---
DATE OF ADMISSION: 10/09/2018 DATE OF DISCHARGE: 10/11/2018 DATE OF DICTATION: 10/11/2018 The patient is a 52-year-old female with past medical history of meningioma, status post radiation in March 2018. She was being followed by Dr. Mccarthy. Admitted with complaints of right eye blurriness and quadruple vision, and dizziness on and off for 2 weeks. The symptoms were intermittent in nature. The patient denies any headache, nausea, vomiting, abdominal pain, chest pain. The patient has past medical history significant for asthma, diabetes, hypertension, hypercholesterolemia. ALLERGIC TO POVIDONE IODINE, SHELLFISH, AND . Medications reviewed. The patient is on losartan, amlodipine, albuterol sulfate, nebulizer, Farxiga, Levemir, metformin. At the time of admission, vitals were stable. Temperature 97.9, pulse rate 84, blood pressure 168/89, respirations 16. Labs showed WBC 11, hemoglobin 13.7, hematocrit 39.7, platelets 328. Chemistry: Sodium 141, potassium 5, chloride 104, bicarbonate 30, BUN 14, creatinine 0.8, sugar 307, AST 42, ALT 71. Head CT and orbital CT were normal. EKG was normal sinus rhythm, no significant change found compared to the old EKG. The patient was kept for observation. Home medication continued. The patient also has paresthesia on the right side of the face, followed by the neurologist and neurosurgeon. MRI of the brain repeated and showed right cavernous sinus meningioma with extension to the right anterior glenoid and right medial tentorium. No brain edema. Repeat MRI was stable. The patient was started on Trileptal for right eye and right face paresthesia, by neurosurgeon. As the findings were stable and there was no progression of symptoms, the patient was discharged home, after being cleared by the neurosurgeon, and recommended to follow with the neurosurgeon as an outpatient. The patient was stable during the hospitalization and was discharged home in stable condition. Recommended to follow with the neurosurgeon. The patient was discharged on home medications and Trileptal. BARAK ALFREDO M.D. [id number]
== END 2018-10-11 15:47 | disposition home or self-care (01) ==
LOC: JER 17:03 → JERBED 23:38 → J6S 10-10 02:54
PROVIDERS: ADMIT Family Medicine; ATTEND Family Medicine
PROC: 3E033NZ Introduction of Analgesics, Hypnotics, Sedatives into Peripheral Vein, Percutaneous Approach (ICD-10-PCS; principal; 2018-10-09)
PROC: 3E013VG Introduction of Insulin into Subcutaneous Tissue, Percutaneous Approach (ICD-10-PCS; 2018-10-09)
PROC: 3E0F7GC Introduction of Other Therapeutic Substance into Respiratory Tract, Via Natural or Artificial Opening (ICD-10-PCS; 2018-10-09)
DX: H53.8 Other visual disturbances (principal); R42 Dizziness and giddiness; R20.0 Anesthesia of skin; E11.9 Type 2 diabetes mellitus without complications; E78.5 Hyperlipidemia, unspecified; I10 Essential (primary) hypertension; J45.909 Unspecified asthma, uncomplicated; Z92.3 Personal history of irradiation; Z86.011 Personal history of benign neoplasm of the brain; Z91.013 Allergy to seafood; Z79.84 Long term (current) use of oral hypoglycemic drugs
CPT/HCPCS: 36415; 70450-TC; 70480-TC; 70553-TC; 80053; 81003; 82009; 82550; 82803; 82962; 84484; 85025; 85610; 86850; 86900; 86901; 93005; 93010; 99283-25; G0378

== ENCOUNTER 2022-11-01 14:26 | Emergency (ER) | payer OTHER ==
[2022-11-01 15:09] VITALS: BP 122/78; PULSE 94; RESP 17; TEMP 98.1; BMI 37.1
[2022-11-01] MEDS ORDERED: predniSONE 20 MG TABLET (UD) PO ONE (16:23)
[2022-11-01] MEDS: ALBUTEROL SO4 2.5/IPRATROPIUM 0.5 INH SOL 3 ML VIAL.NEB. NEB SCH ×2 (16:29→16:30)
[2022-11-01] MEDS ORDERED: ALBUTEROL SO4 2.5/IPRATROPIUM 0.5 INH SOL 3 ML VIAL.NEB. NEB ONE (16:29)
[2022-11-01] MEDS ORDERED: predniSONE 20 MG TABLET (UD) ONE (16:29)
== END 2022-11-01 17:29 | disposition home or self-care (01) ==
LOC: JER 14:26 → JERFT 14:26
PROC: 3E0F7GC Introduction of Other Therapeutic Substance into Respiratory Tract, Via Natural or Artificial Opening (ICD-10-PCS; principal; 2022-11-01)
DX: J45.901 Unspecified asthma with (acute) exacerbation (principal)
CPT/HCPCS: 71046-TC-FY; 99284-25

== ENCOUNTER 2023-07-30 20:16 | Emergency (ER) | payer OTHER ==
[2023-07-30 20:22] VITALS: BP 107/75; PULSE 93; RESP 20; TEMP 98.7; BMI 32.2
[2023-07-30] MEDS ORDERED: SODIUM CHLORIDE 0.9% 500 ML INFUS.BAG IV ONE (20:40)
[2023-07-30] MEDS ORDERED: ACETAMINOPHEN 1000 MG/100 ML BAG IVPB ONE (20:40)
[2023-07-30] MEDS ORDERED: ACETAMINOPHEN INJECTION 100 ML IVPB ONE (21:10)
[2023-07-30 21:28] LABS: EOS % 2.2 % (0-4.5); HEMATOCRIT 40.2 % (32.4-45.2); HEMOGLOBIN 12.7 GM/dL (10.7-15.3); LYMPH % 21.7 % (8-40); MCH 27.7 pg (25.7-33.7); MCHC 31.6 g/dl (32.0-36.0); MEAN CELL VOLUME 87.6 fl (80-96); MEAN PLT VOLUME 6.8 fl (7.5-11.1); MONO % 5.3 % (3.8-10.2); NEUT % 69.8 % (42.8-82.8); PLATELET COUNT 336 10^3/uL (134-434); RBC 4.59 M/mm3 (3.60-5.2); RDW 14.1 % (11.6-15.6); WHITE BLOOD COUNT 13.8 K/mm3 (4.0-10.0)
[2023-07-30 22:03] LABS: POTASSIUM 3.6 mmol/L (3.5-5.1)
[2023-07-30 22:05] LABS: ALBUMIN 3.4 g/dl (3.4-5.0); CALCIUM 8.8 mg/dL (8.5-10.1)
[2023-07-30 22:08] LABS: CREATININE 0.7 mg/dL (0.55-1.3)
[2023-07-30 22:10] LABS: BILIRUBIN,TOTAL 0.5 mg/dL (0.2-1); TOT PROT 6.2 g/dl (6.4-8.2)
[2023-07-31 00:23] LABS: EPI CELLS 8.7 /uL (0-25.1); HYALINE CASTS 1.31 /uL (0-3.1); URINE APPEARANCE CLOUDY; URINE BACTERIA 13.5 /uL (0-1359); URINE COLOR ORANGE; URINE RBC 3179.8 /uL (0-23.9)
[2023-07-31] MEDS ORDERED: CEPHALEXIN MONOHYDRATE 500 MG CAPSULE (UD) PO ONE (01:19)
[2023-07-31] MEDS ORDERED: CEPHALEXIN MONOHYDRATE 500 MG CAPSULE (UD) ONE (01:58)
== END 2023-07-31 02:02 | disposition home or self-care (01) ==
LOC: JER 20:16
PROC: 3E033NZ Introduction of Analgesics, Hypnotics, Sedatives into Peripheral Vein, Percutaneous Approach (ICD-10-PCS; principal; 2023-07-30)
DX: R35.0 Frequency of micturition (principal); R10.30 Lower abdominal pain, unspecified; R07.89 Other chest pain; N30.90 Cystitis, unspecified without hematuria
CPT/HCPCS: 36415; 71046-TC-FY; 74176-TC; 80053; 81003; 84484; 85025; 87086; 87186; 93005; 93010; 99285-25

== ENCOUNTER 2024-02-22 19:05 | Emergency (ER) | payer OTHER ==
[2024-02-22 19:12] VITALS: BP 114/68; PULSE 83; RESP 18; TEMP 98.4; BMI 35.9
== END 2024-02-22 23:16 | disposition home or self-care (01) ==
LOC: JER 19:05 → JERFT 19:05
DX: M79.642 Pain in left hand (principal); M25.532 Pain in left wrist; G56.02 Carpal tunnel syndrome, left upper limb
CPT/HCPCS: 73110-TC-LT-FY; 73130-TC-LT-FY; 99283-25

== ENCOUNTER 2024-06-14 04:19 | Day surgery (SDC) | payer OTHER ==
[2024-06-11 12:30] VITALS: BMI 35.2
[2024-06-14] MEDS ORDERED: MIDAZOLAM HCL 2 MG/2 ML SINGLE DOSE VIAL ONE (12:40)
[2024-06-14] MEDS ORDERED: PROPOFOL 20 ML ONE (12:40)
[2024-06-14] MEDS ORDERED: LIDOCAINE HCL/PF 2% SDV 5ML VIAL ONE (12:45)
[2024-06-14] MEDS ORDERED: ONDANSETRON 4 MG/2 ML VIAL IVPUSH PRN (12:53)
[2024-06-14] MEDS ORDERED: LACTATED RINGERS SOLUTION 1,000 ML IV SCH (13:00)
[2024-06-14] MEDS ORDERED: DEXAMETHASONE SOD PHOSPHATE 4 MG/1 ML VIAL ONE (13:16)
[2024-06-14] MEDS ORDERED: ceFAZolin SODIUM 1 GM VIAL ONE (13:16)
[2024-06-14] MEDS: ceFAZolin SODIUM 1 GM VIAL IVPB ONE (13:17)
[2024-06-14] MEDS ORDERED: ONDANSETRON 4 MG/2 ML VIAL ONE (13:30)
[2024-06-14] MEDS ORDERED: KETOROLAC TROMETHAMINE 30 MG/1 ML VIAL ONE (13:31)
[2024-06-14] MEDS ORDERED: IBUPROFEN 400 MG TABLET (FP) PO PRN (14:01)
[2024-06-14] MEDS ORDERED: ACETAMINOPHEN 325 MG TABLET (FP) PO PRN (14:01)
[2024-06-14 14:17] VITALS: RESP 18
[2024-06-14] MEDS: ACETAMINOPHEN 1000 MG/100 ML BAG IVPB ONE (14:32)
[2024-06-14] MEDS: ACETAMINOPHEN INJECTION 100 ML ONE (14:32)
[2024-06-14 16:42] VITALS: BP 119/75; PULSE 75; TEMP 97.7
== END 2024-06-14 16:35 | disposition home or self-care (01) ==
LOC: JASU-SURG 04:19
PROVIDERS: ATTEND Obstetrics & Gynecology
PROC: 0UDB8ZX Extraction of Endometrium, Via Natural or Artificial Opening Endoscopic, Diagnostic (ICD-10-PCS; principal; 2024-06-14 13:00)
DX: N72 Inflammatory disease of cervix uteri (principal); N95.0 Postmenopausal bleeding
CPT/HCPCS: 82962; 88305-TC; 88341-TC; 88342-TC; 94760; J0131

== ENCOUNTER 2024-07-01 11:09 | Inpatient (IN) | payer OTHER ==
[2024-07-01] MEDS ORDERED: ALBUTEROL SO4 2.5/IPRATROPIUM 0.5 INH SOL 3 ML VIAL.NEB. NEB ONE ×5 (11:31→20:01)
[2024-07-01] MEDS: ALBUTEROL SO4 2.5/IPRATROPIUM 0.5 INH SOL 3 ML VIAL.NEB. NEB SCH ×2 (11:37→16:46)
[2024-07-01 12:30] LABS: VENOUS BASE EXCESS 3.8 mmol/L (-2-2); VENOUS O2 SATURATION 58.4 % (70-80); VENOUS PCO2 52.9 mmHg (38-52); VENOUS PH 7.374 (7.310-7.410)
[2024-07-01 12:36] LABS: BASO % 0.7 % (0-2.0); EOS % 6.9 % (0-4.5); HEMATOCRIT 37.9 % (32.4-45.2); HEMOGLOBIN 12.5 GM/dL (10.7-15.3); LYMPH % 30.9 % (8-40); MCH 29.1 pg (25.7-33.7); MCHC 32.9 g/dl (32.0-36.0); MEAN CELL VOLUME 88.2 fl (80-96); MEAN PLT VOLUME 7.1 fl (7.5-11.1); MONO % 6.3 % (3.8-10.2); NEUT % 55.2 % (42.8-82.8); PLATELET COUNT 313 10^3/uL (134-434); RDW 13.9 % (11.6-15.6)
[2024-07-01 12:39] LABS: POTASSIUM 4.4 mmol/L (3.5-5.1)
[2024-07-01 12:41] LABS: CALCIUM 9.6 mg/dL (8.5-10.1)
[2024-07-01 12:42] LABS: ALBUMIN 3.5 g/dl (3.4-5.0); BLOOD UREA NITROGEN 16.4 mg/dL (7-18); MAGNESIUM 1.7 mg/dL (1.8-2.4)
[2024-07-01 12:45] LABS: CREATININE 0.8 mg/dL (0.55-1.3)
[2024-07-01 12:46] LABS: BILIRUBIN,TOTAL 0.7 mg/dL (0.2-1); TOT PROT 6.6 g/dl (6.4-8.2)
[2024-07-01] MEDS ORDERED: predniSONE 20 MG TABLET (UD) ONE (12:50)
[2024-07-01] MEDS: predniSONE 20 MG TABLET (UD) PO ONE (12:56)
[2024-07-01 14:06] LABS: N-TERMINAL BNP 69.8 pg/ml (5-125)
[2024-07-01] MEDS ORDERED: ASPIRIN 81 MG CHEWABLE TABLETS ONE (15:34)
[2024-07-01] MEDS: ASPIRIN 81 MG CHEWABLE TABLETS PO ONE (15:42)
[2024-07-01] MEDS ORDERED: metFORMIN HCL 500 MG TABLET (FP) ONE (16:36)
[2024-07-01] MEDS: metFORMIN HCL 500 MG TABLET (FP) PO SCH (16:46)
[2024-07-01] MEDS: LOSARTAN POTASSIUM 50 MG TABLET PO SCH (22:23)
[2024-07-01] MEDS ORDERED: ACETAMINOPHEN INJECTION 100 ML ONE (22:40)
[2024-07-01] MEDS ORDERED: HEPARIN NA (PORCINE) 5,000 UNITS/ML 1ML VIAL ONE (22:41)
[2024-07-01] MEDS: HEPARIN NA (PORCINE) 5,000 UNITS/ML 1ML VIAL SQ SCH (22:57)
[2024-07-01] MEDS: ACETAMINOPHEN 1000 MG/100 ML BAG IVPB ONE (22:57)
[2024-07-02 00:31] VITALS: BMI 38.2
[2024-07-02] MEDS: ALBUTEROL SO4 2.5/IPRATROPIUM 0.5 INH SOL 3 ML VIAL.NEB. NEB PRN (05:24)
[2024-07-02 07:52] LABS: BASO % 0.4 % (0-2.0); EOS % 0.4 % (0-4.5); HEMATOCRIT 36.5 % (32.4-45.2); HEMOGLOBIN 11.8 GM/dL (10.7-15.3); LYMPH % 17.3 % (8-40); MCH 28.5 pg (25.7-33.7); MCHC 32.3 g/dl (32.0-36.0); MEAN CELL VOLUME 88.3 fl (80-96); MEAN PLT VOLUME 7.4 fl (7.5-11.1); MONO % 5.8 % (3.8-10.2); NEUT % 76.1 % (42.8-82.8); PLATELET COUNT 313 10^3/uL (134-434); RBC 4.13 M/mm3 (3.60-5.2); RDW 13.9 % (11.6-15.6); WHITE BLOOD COUNT 11.5 K/mm3 (4.0-10.0)
[2024-07-02 08:07] LABS: POTASSIUM 3.7 mmol/L (3.5-5.1)
[2024-07-02 08:10] LABS: CALCIUM 9.6 mg/dL (8.5-10.1)
[2024-07-02 08:11] LABS: BLOOD UREA NITROGEN 19.8 mg/dL (7-18)
[2024-07-02 08:14] LABS: CREATININE 0.7 mg/dL (0.55-1.3)
[2024-07-02] MEDS: ASPIRIN 81 MG CHEWABLE TABLETS PO SCH (10:27)
[2024-07-02] MEDS: predniSONE 20 MG TABLET (UD) PO SCH (10:27)
[2024-07-02] MEDS: HYDROCHLOROTHIAZIDE 25 MG TABLET (FP) PO SCH (10:27)
[2024-07-02] MEDS: BUDESONIDE/FORMETEROL FUMARATE 160/4.5 mcg INHALER IH SCH (11:13)
[2024-07-02] MEDS: MONTELUKAST NA 5 MG TAB.CHEW PO SCH (11:13)
[2024-07-02 11:20] LABS: MAGNESIUM 1.8 mg/dL (1.8-2.4)
[2024-07-02 11:24] LABS: PHOSPHOROUS 2.7 mg/dL (2.5-4.9)
[2024-07-02] MEDS ORDERED: INSULIN ASPART SLIDING SCALE (NOVOLOG) 1 VIAL SQ SCH ×2 (13:29→16:30)
[2024-07-02] MEDS: INSULIN ASPART SLIDING SCALE (NOVOLOG) 1 VIAL SQ SCH (15:28)
[2024-07-02] MEDS: PATIENT'S OWN MEDICATION (NON-FORMULARY) (Farxiga 10 MG) PO SCH (16:15)
[2024-07-02] MEDS: ACETAMINOPHEN 325 MG TABLET (FP) PO PRN (18:27)
[2024-07-03 06:19] LABS: HEMATOCRIT 36.1 % (32.4-45.2); HEMOGLOBIN 11.7 GM/dL (10.7-15.3); MCH 28.8 pg (25.7-33.7); MCHC 32.5 g/dl (32.0-36.0); MEAN CELL VOLUME 88.7 fl (80-96); MEAN PLT VOLUME 7.4 fl (7.5-11.1); PLATELET COUNT 319 10^3/uL (134-434); RBC 4.07 M/mm3 (3.60-5.2)
[2024-07-03] MEDS: ACETAMINOPHEN 1000 MG/100 ML BAG IVPB ONE (14:49)
[2024-07-03] MEDS: SODIUM CHLORIDE 0.45% 1,000 ML IV SCH (14:58)
[2024-07-03] MEDS: MONTELUKAST NA 5 MG TAB.CHEW PO SCH (21:30)
[2024-07-04] MEDS ORDERED: predniSONE 20 MG TABLET (UD) PO SCH (07:47)
[2024-07-04] MEDS: predniSONE 20 MG TABLET (UD) PO SCH (08:41)
[2024-07-04] MEDS: PANTOPRAZOLE 40 MG TABLET PO SCH (11:11)
[2024-07-04] MEDS: TOPIRAMATE 25 MG TABLET PO SCH (14:46)
[2024-07-04] MEDS: MAGNESIUM 2GM/50ML STERILE WATER IVPB IVPB ONE (14:47)
[2024-07-05 08:12] LABS: POTASSIUM 4.2 mmol/L (3.5-5.1)
[2024-07-05 08:17] LABS: CALCIUM 9.6 mg/dL (8.5-10.1)
[2024-07-05 08:18] LABS: BLOOD UREA NITROGEN 17.6 mg/dL (7-18); MAGNESIUM 2.2 mg/dL (1.8-2.4)
[2024-07-05 08:21] LABS: CREATININE 0.7 mg/dL (0.55-1.3)
[2024-07-06 13:51] VITALS: RESP 18
[2024-07-06 14:00] VITALS: BP 131/65; PULSE 89; TEMP 98.4
== END 2024-07-06 19:00 | disposition home or self-care (01) | DRG 203 ==
LOC: JER 11:09 → JERBED 15:23 → J4S 23:49 → OBSVTOIN 07-04 13:54
PROVIDERS: ADMIT Internal Medicine; ATTEND Internal Medicine
PROC: 0DJ08ZZ Inspection of Upper Intestinal Tract, Via Natural or Artificial Opening Endoscopic (ICD-10-PCS; principal; 2024-07-06 14:00)
DX: J45.901 Unspecified asthma with (acute) exacerbation (principal); E11.9 Type 2 diabetes mellitus without complications; I10 Essential (primary) hypertension; E78.5 Hyperlipidemia, unspecified; D32.9 Benign neoplasm of meninges, unspecified; R07.89 Other chest pain; G56.03 Carpal tunnel syndrome, bilateral upper limbs; I25.10 Atherosclerotic heart disease of native coronary artery without angina pectoris; D72.10 Eosinophilia, unspecified; R13.10 Dysphagia, unspecified; E05.90 Thyrotoxicosis, unspecified without thyrotoxic crisis or storm; K44.9 Diaphragmatic hernia without obstruction or gangrene; K22.2 Esophageal obstruction; E04.2 Nontoxic multinodular goiter; G43.909 Migraine, unspecified, not intractable, without status migrainosus; E66.9 Obesity, unspecified; Z68.38 Body mass index [BMI] 38.0-38.9, adult; Z86.718 Personal history of other venous thrombosis and embolism; Z86.711 Personal history of pulmonary embolism; Z98.84 Bariatric surgery status
CPT/HCPCS: 0241U-QW; 36415; 70450-TC; 71045-TC-FY; 74220-TC-FY; 80048; 80053; 82803; 82962; 83036; 83735; 83880; 84100; 84436; 84439; 84443; 84484; 85025; 85027; 93005; 93010; 93971-TC; 94150; 94640; 94761; 99285-25; G0378; J0131; J1644

== ENCOUNTER 2024-10-06 09:17 | Emergency (ER) | payer OTHER ==
[2024-10-06 09:25] VITALS: BP 144/86; PULSE 87; RESP 18; TEMP 97.8; BMI 37.5
== END 2024-10-06 11:33 | disposition home or self-care (01) ==
LOC: JERFT 09:17
DX: M25.562 Pain in left knee (principal); M25.462 Effusion, left knee
CPT/HCPCS: 73562-TC-LT-FY; 99283-25

== ENCOUNTER 2024-11-27 05:56 | Day surgery (SDC) | payer OTHER ==
[2024-11-21 13:53] VITALS: BMI 38.0
[2024-11-27] MEDS ORDERED: EPINEPHrine 1:1,000 1,000 MCG/ML ML ONE (07:18)
[2024-11-27] MEDS ORDERED: BUPIVACAINE HCL/PF 0.25% (2.5MG/ML) 10 ML VIAL ONE (07:18)
[2024-11-27] MEDS ORDERED: MIDAZOLAM HCL 2 MG/2 ML SINGLE DOSE VIAL ONE (07:39)
[2024-11-27] MEDS ORDERED: ETOMIDATE 20 MG/10 ML VIAL IVPUSH ONE (07:39)
[2024-11-27] MEDS ORDERED: PROPOFOL 20 ML ONE ×3 (07:39→08:10)
[2024-11-27] MEDS: BUPIVACAINE HCL/PF 0.25% (2.5MG/ML) 10 ML VIAL IJ ONE (08:28)
[2024-11-27] MEDS ORDERED: TIRZEPATIDE 10 MG/0.5 ML SQ SCH (08:45)
[2024-11-27] MEDS ORDERED: [UNRECOGNIZED DRUG - OTHER] SQ SCH (08:45)
[2024-11-27] MEDS ORDERED: FENTANYL CITRATE/PF 50 MCG/ML VIAL ONE ×2 (09:05→09:33)
[2024-11-27] MEDS ORDERED: ACETAMINOPHEN INJECTION 100 ML ONE (09:05)
[2024-11-27] MEDS ORDERED: oxyCODONE HCL 5 MG TABLET PO PRN (09:10)
[2024-11-27] MEDS: ACETAMINOPHEN 1000 MG/100 ML BAG IVPB PRN (09:13)
[2024-11-27] MEDS ORDERED: ONDANSETRON 4 MG/2 ML VIAL IVPUSH PRN (09:13)
[2024-11-27] MEDS ORDERED: BUDESONIDE IH SCH (10:00)
[2024-11-27] MEDS ORDERED: PATIENT'S OWN MEDICATION (NON-FORMULARY) (Metformin Hcl [Glucophage] 1,000 MG Tablet) PO SCH (10:00)
[2024-11-27] MEDS ORDERED: PATIENT'S OWN MEDICATION (NON-FORMULARY) (Farxiga 10 MG) PO SCH (10:00)
[2024-11-27] MEDS ORDERED: FORMOTEROL FUMARATE IH SCH (10:00)
[2024-11-27] MEDS ORDERED: ASPIRIN 81 MG PO SCH (10:00)
[2024-11-27] MEDS ORDERED: [UNRECOGNIZED DRUG - OTHER] IH SCH (10:00)
[2024-11-27 11:09] VITALS: RESP 18; TEMP 98.2
[2024-11-27 11:17] VITALS: BP 112/78; PULSE 84
[2024-11-27] MEDS ORDERED: HYDROCHLOROTHIAZIDE PO SCH (22:00)
[2024-11-27] MEDS ORDERED: PATIENT'S OWN MEDICATION (NON-FORMULARY) (Losartan Potassium [Cozaar] 100 MG Tablet) PO SCH (22:00)
== END 2024-11-27 11:00 | disposition home or self-care (01) ==
LOC: FASU 05:56
PROVIDERS: ATTEND Orthopaedic Surgery Sports Medicine
PROC: 0SBD4ZZ Excision of Left Knee Joint, Percutaneous Endoscopic Approach (ICD-10-PCS; principal; 2024-11-27 08:06)
DX: S83.242A Other tear of medial meniscus, current injury, left knee, initial encounter (principal); M65.862 Other synovitis and tenosynovitis, left lower leg; M94.262 Chondromalacia, left knee; X58.XXXA Exposure to other specified factors, initial encounter; Y92.9 Unspecified place or not applicable; Y93.9 Activity, unspecified
CPT/HCPCS: 82962; 94760; J0131

== ENCOUNTER 2024-12-04 18:36 | Emergency (ER) | payer OTHER ==
[2024-12-04 18:47] VITALS: BMI 37.0
[2024-12-04 20:26] LABS: BASO % 0.5 % (0-2.0); EOS % 0.8 % (0-4.5); HEMATOCRIT 41.7 % (32.4-45.2); HEMOGLOBIN 13.1 GM/dL (10.7-15.3); LYMPH % 18.9 % (8-40); MCHC 31.5 g/dl (32.0-36.0); MEAN CELL VOLUME 85.8 fl (80-96); MEAN PLT VOLUME 6.7 fl (7.5-11.1); MONO % 5.5 % (3.8-10.2); NEUT % 74.3 % (42.8-82.8); PLATELET COUNT 362 10^3/uL (134-434); RBC 4.86 M/mm3 (3.60-5.2); RDW 14.2 % (11.6-15.6)
[2024-12-04 20:29] LABS: VENOUS BASE EXCESS 3.4 mmol/L (-2-2); VENOUS O2 SATURATION 64.6 % (70-80); VENOUS PCO2 46.1 mmHg (38-52); VENOUS PH 7.412 (7.310-7.410)
[2024-12-04] MEDS ORDERED: ACETAMINOPHEN INJECTION 100 ML ONE (20:37)
[2024-12-04] MEDS ORDERED: ONDANSETRON 4 MG/2 ML VIAL ONE (20:37)
[2024-12-04] MEDS: ACETAMINOPHEN 1000 MG/100 ML BAG IVPB ONE (20:50)
[2024-12-04] MEDS: SODIUM CHLORIDE 0.9% 500 ML INFUS.BAG IV ONE (20:50)
[2024-12-04] MEDS: ONDANSETRON 4 MG/2 ML VIAL IVPUSH ONE ×2 (20:50→22:01)
[2024-12-04 20:51] LABS: INR 1.05 (0.83-1.09); PROTHROMBIN TIME (PATIENT) 11.6 SEC (9.7-13.0)
[2024-12-04 20:52] LABS: EPI CELLS 21 /uL (0-25.1); HYALINE CASTS 3 /uL (0-3.1); URINE APPEARANCE CLEAR; URINE BACTERIA 335 /uL (0-1359); URINE BILIRUBIN NEGATIVE (NEGATIVE); URINE COLOR YELLOW; URINE GLUCOSE (UA) 3+ (NEGATIVE); URINE KETONE 1+ (NEGATIVE); URINE LEUK ESTERASE 1+ (NEGATIVE); URINE NITRITE NEGATIVE (NEGATIVE); URINE PROTEIN NEGATIVE (NEGATIVE); URINE RBC 21 /uL (0-23.9); URINE UROBILINOGEN 0.2 mg/dL (0.2-1.0); URINE WBC 273 /uL (0-25.8)
[2024-12-04 20:54] LABS: ACTIVATED PTT 31.6 SECONDS (25.2-36.5); POTASSIUM 4.4 mmol/L (3.5-5.1)
[2024-12-04 20:56] LABS: MAGNESIUM 1.8 mg/dL (1.8-2.4)
[2024-12-04 20:57] LABS: ALBUMIN 3.6 g/dl (3.4-5.0); BLOOD UREA NITROGEN 22.7 mg/dL (7-18)
[2024-12-04 21:00] LABS: CREATININE 0.9 mg/dL (0.55-1.3)
[2024-12-04 21:02] LABS: BILIRUBIN,TOTAL 0.6 mg/dL (0.2-1)
[2024-12-04] MEDS ORDERED: SULFAMETHOXAZOLE/TRIMETHOPRIM 800MG/160MG D.S. TABLET ONE (22:02)
[2024-12-04] MEDS: SULFAMETHOXAZOLE/TRIMETHOPRIM 800MG/160MG D.S. TABLET PO ONE (22:10)
[2024-12-04 22:11] VITALS: BP 148/77; PULSE 86; RESP 16; TEMP 97.9
== END 2024-12-04 22:25 | disposition home or self-care (01) ==
LOC: JER 18:36
PROC: 3E033NZ Introduction of Analgesics, Hypnotics, Sedatives into Peripheral Vein, Percutaneous Approach (ICD-10-PCS; principal; 2024-12-04)
PROC: 3E033GC Introduction of Other Therapeutic Substance into Peripheral Vein, Percutaneous Approach (ICD-10-PCS; 2024-12-04)
DX: K52.9 Noninfective gastroenteritis and colitis, unspecified (principal); R11.2 Nausea with vomiting, unspecified; R14.0 Abdominal distension (gaseous); R10.84 Generalized abdominal pain; R30.0 Dysuria; M79.661 Pain in right lower leg; M25.562 Pain in left knee
CPT/HCPCS: 0241U-QW; 36415; 71045-TC-FY; 80053; 81003; 82010; 82803; 83605; 83735; 84484; 85025; 85610; 85730; 86850; 86900; 86901; 87077; 87086; 93005; 93010; 93971-TC; 99285-25; J0131